=== PATIENT | female | born 1990 | race African-American/Black ===

== ENCOUNTER 2017-11-25 20:40 | Emergency (ER) | payer SELFPAY ==
--- NOTE | 2017-11-25 21:35 | EDM.PDOC ---
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 She denies vaginal discharge abdominal pain or cramping vaginal bleeding or other concern Review of systems: As per history of present illness and below otherwise all systems reviewed and negative. Past medical history: As per history of present illness and as reviewed below otherwise noncontributory. Surgical history: As per history of present illness and as reviewed below otherwise noncontributory. Social history: No reported history of drug or alcohol abuse. Family history: As per history of present illness and as reviewed below otherwise noncontributory. Physical exam: HEENT: Atraumatic, normocephalic, pupils reactive, negative for conjunctival pallor or scleral icterus, mucous membranes moist, throat clear, neck supple, nontender, trachea midline. Lungs: Clear to auscultation, breath sounds equal bilaterally, chest nontender. Heart: S1S2, regular, negative for clicks, rubs, or JVD. Abdomen: Soft, gravid uterus nontender. Negative for masses or hepatosplenomegaly. Negative for costovertebral tenderness. Pelvis: Stable nontender. Genitourinary: Deferred. Rectal: Deferred. Extremities: Atraumatic, negative for cords or calf pain. Neurovascular unremarkable. Neuro: Awake, alert, oriented. Cranial nerves II through XII unremarkable. Cerebellum unremarkable. Motor and sensory unremarkable throughout. Exam nonfocal. Diagnostics: CBC CMP UA heart tones Therapeutics: None Impression: #1 medical screening exam #2 second trimester Definitive disposition and diagnosis as appropriate pending reevaluation and review of above. 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 ED EXAM, GENERAL - Physical Exam Exam: See Below (See dictation) Course - Vital Signs Last Recorded V/S: Last Vital Signs Temp 36.8 C 11/25/17 20:40 Pulse 98 11/25/17 20:40 Resp 18 11/25/17 20:40 BP 108/70 11/25/17 20:40 Pulse Ox 98 11/25/17 20:40 - Orders/Labs/Meds Orders: Active Orders 24 hr Category Date Time Status Heart Tones [RC] ASDIRECTED Care 11/25/17 21:32 Active COMPREHENSIVE METABOLIC PN,CMP [CHEM] Stat Lab 11/25/17 21:39 Received Labs: Laboratory Tests 11/25/17 11/25/17 Range/Units 21:39 21:45 WBC 17.07 H (4.0-11.0) K/uL RBC 3.95 L (4.30-5.90) M/uL Hgb 10.8 L (12.0-16.0) g/dL Hct 31.4 L (36.0-46.0) % MCV 79.5 L (80.0-98.0) fL MCH 27.3 (27.0-32.0) pg MCHC 34.4 (31.0-37.0) g/dL RDW Std Deviation 39.9 (28.0-62.0) fl RDW Coeff of Mini 14 (11.0-15.0) % Plt Count 326 (150-400) K/uL MPV 9.10 (7.40-12.00) fL Neut % (Auto) 73.7 (48.0-80.0) % Lymph % (Auto) 19.4 (16.0-40.0) % [place] % (Auto) 5.7 (0.0-15.0) % Eos % (Auto) 1.1 (0.0-7.0) % Baso % (Auto) 0.1 (0.0-1.5) % Neut # (Auto) 12.6 H (1.4-5.7) K/uL Lymph # (Auto) 3.3 H (0.6-2.4) K/uL [place] # (Auto) 1.0 H (0.0-0.8) K/uL Eos # (Auto) 0.2 (0.0-0.7) K/uL Baso # (Auto) 0.0 (0.0-0.1) K/uL Nucleated RBC % 0.0 /100WBC Nucleated RBCs # 0 K/uL Urine Color YELLOW Urine Appearance SLT CLOUDY Urine pH 6.0 (5.0-8.0) Ur Specific [place] 1.025 (1.001-1.035) Urine Protein NEGATIVE (NEGATIVE) mg/dL Urine Glucose (UA) NEGATIVE (NEGATIVE) mg/dL Urine Ketones NEGATIVE (NEGATIVE) mg/dL Urine Occult Blood SMALL H (NEGATIVE) Urine Nitrite NEGATIVE (NEGATIVE) Urine Bilirubin NEGATIVE (NEGATIVE) Urine Urobilinogen 0.2 (<2.0) EU/dL Ur Leukocyte Esterase SMALL (NEGATIVE) Urine RBC 0-2 (0-2/HPF) Urine WBC 3-6 (0-5/HPF) Ur Epithelial Cells MANY (NONE-FEW) Urine Bacteria 2+ H (NEGATIVE) Departure - Departure Time of Disposition: 22:10 Disposition: Home, Self-Care 01 Condition: Good Clinical Impression: UTI (urinary tract infection), Second trimester - Discharge Information Forms: ED Department Discharge Additional Instructions: The following information is given to patients seen in the emergency department who are being discharged to home. This information is to outline your options for follow-up care. We provide all patients seen in our emergency department with a follow-up referral. The need for follow-up, as well as the timing and circumstances, are variable depending upon the specifics of your emergency department visit. If you don't have a primary care physician on staff, we will provide you with a referral. We always advise you to contact your personal physician following an emergency department visit to inform them of the circumstance of the visit and for follow-up with them and/or the need for any referrals to a consulting specialist. The emergency department will also refer you to a specialist when appropriate. This referral assures that you have the opportunity for followup care with a specialist. All of these measure are taken in an effort to provide you with optimal care, which includes your followup. Under all circumstances we always encourage you to contact your private physician who remains a resource for coordinating your care. When calling for followup care, please make the office aware that this follow-up is from your recent emergency room visit. If for any reason you are refused follow-up, please contact the [facility] emergency department at and asked to speak to the emergency department charge nurse. [facility] Primary Care - Women's [facility] [address] [place] [id number] Ady as prescribed call to schedule appointment with [facility] new vitamins return as needed as discussed - My Orders Last 24 Hours: My Active Orders 11/25/17 21:32 Heart Tones [RC] ASDIRECTED 11/25/17 21:39 COMPREHENSIVE METABOLIC PN,CMP [CHEM] Stat - Assessment/Plan Last 24 Hours: My Active Orders 11/25/17 21:32 Heart Tones [RC] ASDIRECTED 11/25/17 21:39 COMPREHENSIVE METABOLIC PN,CMP [CHEM] Stat
[2017-11-25 22:08] LABS: CHLORIDE,CL 107 mmol/L (98-110); SODIUM,NA 137 mmol/L (136-146)
== END 2017-11-25 22:50 | disposition home or self-care (01) ==
LOC: MW.ED 20:40
DX: O92.29 Other disorders of breast associated with pregnancy and the puerperium (principal); O23.42 Unspecified infection of urinary tract in pregnancy, second trimester; Z3A.18 18 weeks gestation of pregnancy
CPT/HCPCS: 36415; 80053; 81001; 85025; 99283

== ENCOUNTER 2018-04-08 17:45 | Inpatient (IN) | payer BC ==
[2018-04-08] MEDS ORDERED: Sodium Chloride 0.9% 2.5 ML Syringe FLUSH PRN ×2 (19:13→23:04)
[2018-04-08] MEDS ORDERED: Ampicillin 2 GM in Sodium Chloride 0.9% 100 ML IV ONE (19:13)
[2018-04-08] MEDS ORDERED: Methylergonovine 0.2 MG/1 ML Amp IM PRN (19:13)
[2018-04-08] MEDS ORDERED: Lidocaine 1% 50 ML MDV INJECT PRN (19:13)
[2018-04-08] MEDS ORDERED: Butorphanol 1 MG/ML SDV IVPUSH PRN (19:13)
[2018-04-08] MEDS ORDERED: Tranexamic Acid 1,000 MG in Sodium Chloride 0.9% 100 ML IV PRN (19:13)
[2018-04-08] MEDS ORDERED: Carboprost Tromethamine 250 MCG/1 ML Amp IM PRN (19:13)
[2018-04-08] MEDS ORDERED: Sodium Chloride 0.9% 10 ML Syringe FLUSH PRN ×2 (19:13→23:04)
[2018-04-08] MEDS ORDERED: Misoprostol 200 MCG Tab PO PRN (19:13)
[2018-04-08] MEDS ORDERED: Water For Irrigation,Sterile 1,000 ML Container IRR PRN (19:13)
[2018-04-08] MEDS ORDERED: Nalbuphine 10 MG/1 ML Vial IVPUSH PRN (19:13)
[2018-04-08] MEDS ORDERED: Lactated Ringers 1,000 ML IV SCH (19:15)
[2018-04-08] MEDS ORDERED: Oxytocin/0.9 % Sodium Chloride 30 UNIT/500 ML BAG IV SCH (19:15)
[2018-04-08] MEDS ORDERED: Oxytocin/0.9 % Sodium Chloride 30 UNIT/500 ML BAG ONE (19:30)
--- NOTE | 2018-04-08 19:58 | PCM.OPNOTE ---
- General Post-Op/Procedure Note Date of Surgery/Procedure: 04/08/18 Operative Procedure(s): /IP--precipitous Findings: Viable male APGARs 8, 9 weight pending. Spontaneous delivery intact placenta with 3V cord. Pre Op Diagnosis: 38 week IUP. Labor. GBBS positive Post-Op Diagnosis: Same Anesthesia Technique: Other (see below) (None) Primary Surgeon: Marisela Neumann EBL in mLs: 300 Complications: none known Condition: Good Free Text/Narrative:: Dictation [id number]
--- NOTE | 2018-04-08 21:10 | OR ---
SURGEON: Marisela Neumann M.D. DATE OF PROCEDURE: 04/08/2018 PREOPERATIVE DIAGNOSES: 1. 38-week intrauterine . 2. Active labor. 3. Group B strep positive. POSTOPERATIVE DIAGNOSES: 1. 38-week intrauterine . 2. Active labor. 3. Group B strep positive. PROCEDURE: Spontaneous vaginal delivery, intact perineum, precipitous. ANESTHESIA: None. ESTIMATED BLOOD LOSS: 300 mL. COMPLICATIONS: None. FINDINGS: Term viable male, score 8 at 1 minute and 9 at 5 minutes. Weight is pending. Spontaneous delivery, intact placenta, 3-vessel cord. DISPOSITION: The patient in LDRP, to nursery. PROCEDURE IN DETAIL: Radha is a 28-year-old G2, P1, at 38 weeks' gestational age, who presents with regular contractions. On initial observation, she was found to be 4 cm, within an hour progressed to 5 cm. She was admitted and was attempting to get routine labs and IV initiated when her water spontaneously ruptured and she quickly progressed to complete with urge to push. I was called for delivery. Upon my arrival, the had delivered precipitously with the nursing staff present. Ampicillin was not be able to delivered yet as the IV you had just been initiated Pitocin; however, was being administered an IV at this time for hemorrhage prophylaxis. Cord blood was now obtained. Light pressure was applied while the placenta was delivered spontaneously intact. Vigorous fundal uterine massage was then applied while 30 units Pitocin was delivered in 500 mL of IV fluid. Upon inspection of cervix, vaginal side, and perineum found to be intact. Uterus remained firm. Hemostasis appeared evident. Sponge count was correct. The is lying on his mother's chest, both are stable at this time. SHARI / DIANA /[id number]
[2018-04-08] MEDS ORDERED: Lanolin 100% Cream 7 GM Tube TOP PRN (23:04)
[2018-04-08] MEDS ORDERED: oxyCODONE 5 MG Tab PO PRN (23:04)
[2018-04-08] MEDS ORDERED: Ibuprofen 400 MG Tab PO PRN (23:04)
[2018-04-08] MEDS ORDERED: Bisacodyl 10 MG Supp RECTAL PRN (23:04)
[2018-04-08] MEDS ORDERED: Witch Hazel Medicated Pads 40/Jar TOP PRN (23:04)
[2018-04-08] MEDS ORDERED: Acetaminophen 500 MG Tab PO PRN ×2 (23:04)
[2018-04-08] MEDS ORDERED: Benzocaine/Menthol 20%-0.5% Spray 78 GM Cannister TOP PRN (23:04)
[2018-04-08] MEDS: Docusate Sodium 100 MG Cap PO PRN (23:31)
[2018-04-09] MEDS: Ampicillin 1 GM in Sodium Chloride 0.9% 50 ML IV SCH ×2 (00:13→04:26)
[2018-04-09] MEDS: Ibuprofen 800 MG Tab PO PRN ×3 (01:17→17:30)
[2018-04-09] MEDS: Docusate Sodium 100 MG Cap PO PRN (08:29)
--- NOTE | 2018-04-09 10:26 | PCM.PNPP ---
- General Info Date of Service: 04/09/18 Admission Dx/Problem (Free Text): precipitous vaginal delivery Functional Status: Reports: Pain Controlled - Review of Systems General: Reports: No Symptoms HEENT: Reports: No Symptoms Pulmonary: Reports: No Symptoms Cardiovascular: Reports: No Symptoms Gastrointestinal: Reports: No Symptoms Genitourinary: Reports: No Symptoms Musculoskeletal: Reports: No Symptoms Skin: Reports: No Symptoms Neurological: Reports: No Symptoms Psychiatric: Reports: No Symptoms - General Info Date of Service: 04/09/18 - Patient Data Vital Signs - Most Recent: Last Vital Signs Temp 37.0 C 04/09/18 08:00 Pulse 69 04/09/18 08:00 Resp 16 04/09/18 08:00 BP 95/59 L 04/09/18 08:00 Pulse Ox 99 04/09/18 08:00 Weight - Most Recent: 102.512 kg Lab Results - Last 24 Hours: Laboratory Results - last 24 hr 04/08/18 04/08/18 04/09/18 Range/Units 19:34 19:34 05:13 WBC 17.39 H (4.0-11.0) K/uL RBC 4.37 (4.30-5.90) M/uL Hgb 11.6 L 10.3 L (12.0-16.0) g/dL Hct 34.5 L 31.1 L (36.0-46.0) % MCV 78.9 L (80.0-98.0) fL MCH 26.5 L (27.0-32.0) pg MCHC 33.6 (31.0-37.0) g/dL RDW Std Deviation 45.4 (28.0-62.0) fl RDW Coeff of Mini 16 H (11.0-15.0) % Plt Count 276 (150-400) K/uL MPV 9.60 (7.40-12.00) fL Nucleated RBC % 0.0 /100WBC Nucleated RBCs # 0 K/uL Blood Type O POSITIVE Antibody Screen NEGATIVE Med Orders - Current: Current Medications Acetaminophen (Tylenol Extra Strength) 500 mg PO Q4H PRN PRN Reason: Pain Last Admin: 04/08/18 23:30 Dose: 500 mg Acetaminophen (Tylenol Extra Strength) 1,000 mg PO Q4H PRN PRN Reason: Pain Benzocaine/Menthol (Dermoplast Pain Relief 20%-0.5% [place]) 78 gm TOP ASDIRECTED PRN PRN Reason: Perineal Comfort Measure Last Admin: 04/08/18 23:35 Dose: 78 gm Bisacodyl (Dulcolax) 10 mg RECTAL .ONCE PRN PRN Reason: Constipation Docusate Sodium (Colace) 100 mg PO BID PRN PRN Reason: Constipation Last Admin: 04/09/18 08:29 Dose: 100 mg Emollient Ointment (Lansinoh Hpa) 0 gm TOP ASDIRECTED PRN PRN Reason: Sore Nipples Last Admin: 04/08/18 23:36 Dose: 7 gm Ibuprofen (Motrin) 400 mg PO Q4H PRN PRN Reason: Pain Ibuprofen (Motrin) 800 mg PO Q6H PRN PRN Reason: Pain Last Admin: 04/09/18 08:28 Dose: 800 mg Oxycodone HCl (Oxycodone) 5 mg PO Q2H PRN PRN Reason: Pain Last Admin: 04/08/18 23:30 Dose: 5 mg Sodium Chloride (Saline Flush) 10 ml FLUSH ASDIRECTED PRN PRN Reason: Keep Vein Open Sodium Chloride (Saline Flush) 2.5 ml FLUSH ASDIRECTED PRN PRN Reason: Keep Vein Open Sodium Chloride (Saline Flush) 10 ml FLUSH ASDIRECTED PRN PRN Reason: Keep Vein Open Sodium Chloride (Saline Flush) 2.5 ml FLUSH ASDIRECTED PRN PRN Reason: Keep Vein Open Witch Mayra (Tucks) 1 pad TOP ASDIRECTED PRN PRN Reason: comfort care Last Admin: 04/08/18 23:35 Dose: 1 pad Discontinued Medications Butorphanol Tartrate (Stadol) 1 mg IVPUSH Q1H PRN PRN Reason: Pain Stop: 04/08/18 22:00 Carboprost Tromethamine (Hemabate Ds) 250 mcg IM ASDIRECTED PRN PRN Reason: Post Hemorrhage Stop: 04/08/18 22:00 Tranexamic Acid 1,000 mg/ (Sodium Chloride) 110 mls @ 660 mls/hr IV ONETIME PRN PRN Reason: Bleeding Stop: 04/08/18 22:00 Ampicillin Sodium 2 gm/ Sodium (Chloride) 100 mls @ 200 mls/hr IV ONETIME ONE Stop: 04/08/18 19:42 Last Admin: 04/09/18 00:13 Dose: Not Given Lactated Ringer's (Ringers, Lactated) 1,000 mls @ 150 mls/hr IV ASDIRECTED GHASSAN Stop: 04/08/18 22:00 Oxytocin/Sodium Chloride (Oxytocin 30 Unit/500 Ml-Ns) 30 unit in 500 mls @ 500 mls/hr IV TITRATE GHASSAN Stop: 04/08/18 22:00 Last Admin: 04/08/18 19:28 Dose: 500 mls/hr Ampicillin Sodium 1 gm/ Sodium (Chloride) 50 mls @ 100 mls/hr IV Q4H [facility] Last Admin: 04/09/18 04:26 Dose: Not Given Oxytocin/Sodium Chloride (Oxytocin 30 Unit/500 Ml-Ns) Confirm Administered Dose 30 unit in 500 mls @ as directed .ROUTE .STK-MED ONE Stop: 04/08/18 19:31 Last Admin: 04/09/18 00:13 Dose: Not Given Lidocaine HCl (Xylocaine 1%) 50 ml INJECT .ONCE PRN PRN Reason: Laceration repair Stop: 04/08/18 22:00 Methylergonovine Maleate (Methergine) 0.2 mg IM ASDIRECTED PRN PRN Reason: Post Hemorrhage Stop: 04/08/18 22:00 Misoprostol (Cytotec) 200 mcg PO .ONCE PRN PRN Reason: Post Hemorrhage Stop: 04/08/18 22:00 Nalbuphine HCl (Nubain) 10 mg IVPUSH Q1H PRN PRN Reason: Pain (severe 7-10) Stop: 04/08/18 22:00 Sterile Water (Sterile Water For Irrigation) 1,000 ml IRR ASDIRECTED PRN PRN Reason: delivery Stop: 04/08/18 22:00 Last Admin: 04/08/18 19:30 Dose: 1,000 ml - Infant Interaction Disposition, : in Room with Family Interaction: Holding Infant Feeding: Breastfed ; Nursed Well Support Person: Significant Other - Recovery Exam Fundal Tone: Firm Fundal Level: At Umbilicus Fundal Placement: Midline Lochia Amount: Scant Lochia Color: Rubra/Red Perineum Description: Intact, Minimal Bruising/Swelling Episiotomy/Laceration: None Bladder Status: Voiding Urinary Elimination: Voided - Exam General: Alert, Oriented HEENT: Pupils Equal Neck: Supple Lungs: Normal Respiratory Effort GI/Abdominal Exam: Soft, Non-Tender, No Organomegaly, No Distention, Pelvis Stable Extremities: Normal Inspection, Non-Tender, No Pedal Edema Skin: Warm, Dry, Intact Wound/Incisions: Healing Well Neurological: No New Focal Deficit Psy/Mental Status: Alert, Normal Affect, Normal Mood - Problem List & Annotations (1) Vaginal delivery SNOMED Code(s): 513162867 Code(s): O80 - ENCOUNTER FOR FULL-TERM UNCOMPLICATED DELIVERY Status: Acute Current Visit: Yes - Problem List Review Problem List Initiated/Reviewed/Updated: Yes - Assessment Assessment:: PPD#1 after , stable, minimal lochia, minimal pain. She would like to go home when 24 hours if stitcher feeder is in agreement. Discharge instructions reviewed. See discharge plan.
== END 2018-04-09 22:30 | disposition home or self-care (01) | DRG 560 ==
LOC: MW.OB 17:45 → MW.OBCHECK 17:45 → MW.OB 19:13 → OBSVTOIN 19:28
PROVIDERS: ADMIT Obstetrics & Gynecology; ATTEND Obstetrics & Gynecology
PROC: 10E0XZZ Delivery of Products of Conception, External Approach (ICD-10-PCS; principal; 2018-04-08)
DX: O62.3 Precipitate labor (principal); O99.824 Streptococcus B carrier state complicating childbirth; Z3A.38 38 weeks gestation of pregnancy; Z37.0 Single live birth
CPT/HCPCS: 36415; 59025; 59409; 85014; 85018; 85027; 86850; 86900; 86901; A9270-GY; J2590

== ENCOUNTER 2019-03-02 16:16 | Emergency (ER) | payer BC ==
--- NOTE | 2019-03-02 17:22 | EDM.PDOC ---
ED HPI GENERAL MEDICAL PROBLEM - General Chief Complaint: Skin Complaint Stated Complaint: SORE BREASTS, CHAPPED NIPPLES AFTER Time Seen by Provider: 03/02/19 16:21 Source of Information: Reports: Patient - History of Present Illness INITIAL COMMENTS - FREE TEXT/NARRATIVE: HISTORY AND PHYSICAL: History of present illness: []Patient is having some problems with nipple chafing secondary to breast- feeding also having slight tenderness associated with the left nipple, As on exam although chafing and cracking her present on the nipple tender at the 12 o'clock position just above the nipple but no obvious cellulitis No fever nausea vomiting chills sweats Review of systems: As per history of present illness and below otherwise all systems reviewed and negative. Past medical history: As per history of present illness and as reviewed below otherwise noncontributory. Surgical history: As per history of present illness and as reviewed below otherwise noncontributory. Social history: No reported history of drug or alcohol abuse. Family history: As per history of present illness and as reviewed below otherwise noncontributory. Physical exam: HEENT: Atraumatic, normocephalic, pupils reactive, negative for conjunctival pallor or scleral icterus, mucous membranes moist, throat clear, neck supple, nontender, trachea midline. Lungs: Clear to auscultation, breath sounds equal bilaterally, chest nontender. Heart: S1S2, regular, negative for clicks, rubs, or JVD. Abdomen: Soft, nondistended, nontender. Negative for masses or hepatosplenomegaly. Negative for costovertebral tenderness. Pelvis: Stable nontender. Genitourinary: Deferred. Rectal: Deferred. Extremities: Atraumatic, negative for cords or calf pain. Neurovascular unremarkable. Neuro: Awake, alert, oriented. Cranial nerves II through XII unremarkable. Cerebellum unremarkable. Motor and sensory unremarkable throughout. Exam nonfocal. Diagnostics: [Clinical ] Therapeutics: coconut oil Amoxicillin Impression: [Medical screening exam mild mastitis on the left and bilateral nipple chafing ] Definitive disposition and diagnosis as appropriate pending reevaluation and review of above. 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: Musculoskeletal History: Reports: None Neurological History: Reports: None Psychiatric History: Reports: None Endocrine/Metabolic History: Reports: None Hematologic History: Reports: None Immunologic History: Reports: None Oncologic (Cancer) History: Reports: None Dermatologic History: Reports: None - Infectious Disease History Infectious Disease History: Reports: None - Past Surgical History Head Surgeries/Procedures: Reports: None HEENT Surgical History: Reports: None Cardiovascular Surgical History: Reports: None Respiratory Surgical History: Reports: None GI Surgical History: Reports: None Female Surgical History: Reports: None Endocrine Surgical History: Reports: None Neurological Surgical History: Reports: None Oncologic Surgical History: Reports: None Dermatological Surgical History: Reports: Skin Graft Social & Family History - Family History Family Medical History: Noncontributory - Tobacco Use Smoking Status *Q: Never Smoker - Caffeine Use Caffeine Use: Reports: Coffee - Recreational Drug Use Recreational Drug Use: No ED ROS GENERAL - Review of Systems Review Of Systems: See Below ED EXAM, SKIN/RASH Exam: See Below Course - Vital Signs Last Recorded V/S: Last Vital Signs Temp 97.3 F 03/02/19 17:04 Pulse 75 03/02/19 17:04 Resp 18 03/02/19 17:04 BP 130/80 03/02/19 17:04 Pulse Ox 99 03/02/19 17:04 Departure - Departure Time of Disposition: 17:21 Disposition: Home, Self-Care 01 Condition: Good Clinical Impression: Encounter for medical screening examination - Discharge Information Referrals: PCP,None [Primary Care Provider] - Additional Instructions: The following information is given to patients seen in the emergency department who are being discharged to home. This information is to outline your options for follow-up care. We provide all patients seen in our emergency department with a follow-up referral. The need for follow-up, as well as the timing and circumstances, are variable depending upon the specifics of your emergency department visit. If you don't have a primary care physician on staff, we will provide you with a referral. We always advise you to contact your personal physician following an emergency department visit to inform them of the circumstance of the visit and for follow-up with them and/or the need for any referrals to a consulting specialist. The emergency department will also refer you to a specialist when appropriate. This referral assures that you have the opportunity for follow-up care with a specialist. All of these measure are taken in an effort to provide you with optimal care, which includes your follow-up. Under all circumstances we always encourage you to contact your private physician who remains a resource for coordinating your care. When calling for follow-up care, please make the office aware that this follow-up is from your recent emergency room visit. If for any reason you are refused follow-up, please contact the [facility] emergency department at and asked to speak to the emergency department charge nurse.
== END 2019-03-02 17:47 | disposition home or self-care (01) ==
LOC: MW.ED 16:16
DX: N61.0 Mastitis without abscess (principal)
CPT/HCPCS: 99283